=== PATIENT | female | born 1945 | race Caucasian/White ===

== ENCOUNTER 2020-02-05 01:25 | Inpatient (IN) | payer MEDICARE ==
[~2020-02-05] VITALS: Ht 149.9 cm; Wt 76.0 kg
[2020-02-05] MEDS ORDERED: ATOR40TA PO (02:16)
[2020-02-05] MEDS ORDERED: DIGO125T PO (02:16)
[2020-02-05] MEDS ORDERED: METO25TA6 PO (02:16)
[2020-02-05] MEDS ORDERED: FURO-150 PO (02:17)
[2020-02-05] MEDS ORDERED: TRAZ150T78 PO (02:17)
[2020-02-05] MEDS ORDERED: BUSP15TA3 PO (02:17)
[2020-02-05] MEDS ORDERED: SERT25TA PO (02:17)
[2020-02-05] MEDS ORDERED: METF500T PO (02:17)
[2020-02-05] MEDS ORDERED: GABA300C PO (02:17)
[2020-02-05] MEDS ORDERED: NITR0.4T51 SL (02:17)
[2020-02-05] MEDS ORDERED: PRAS10TA10 PO (02:17)
[2020-02-05 02:25] LABS: ALBUMIN 2.8 G/DL (3.4-5.0); ANION GAP 9 (8-16); BLOOD UREA NITROGEN 55 MG/DL (7-18); BUN/CREATININE RATIO 9.9 (6.6-38.0); CALCIUM 8.7 MG/DL (8.5-10.1); CHLORIDE 101 MMOL/L (99-107); CREATININE 5.58 MG/DL (0.40-0.90); GLUCOSE 125 MG/DL (70-104); SODIUM 136 MMOL/L (135-145); TOTAL CARBON DIOXIDE 26.4 MMOL/L (24-32); TROPONIN I 0.16 NG/ML (0.0-0.05); eGFR 7 ML/MIN
[2020-02-05 02:26] LABS: POTASSIUM 6.1 MMOL/L (3.5-5.1)
[2020-02-05] MEDS ORDERED: furosemide 10 MG/1 ML 10ml inj IV ONE (02:30)
[2020-02-05] MEDS ORDERED: sodium bicarbonate (8.4%) inj. 1 MEQ/ML ML IV ONE (02:35)
[2020-02-05] MEDS: CALCIUM GLUC 1gm/50ml NACL,iso 50 ML IV SCH ×2 (02:42→03:56)
[2020-02-05] MEDS ORDERED: albuterol 2.5 MG/3 ML nebule CONTNEB STA (03:29)
[2020-02-05] MEDS ORDERED: insulin regular, human 10 units/0.1 ml syringe IV ONE (03:30)
[2020-02-05] MEDS ORDERED: dextrose 50%-water 50ml dispensing syringe IV ONE (03:30)
[2020-02-05] MEDS ORDERED: sodium polystyrene sulfonate 15gm/60ml oral suspension PO ONE (03:30)
[2020-02-05] MEDS ORDERED: ondansetron/PF 4mg/2ml inj IV PRN (04:15)
[2020-02-05] MEDS ORDERED: magnesium hydroxide 30ml (MOM) UD suspension PO PRN (04:15)
[2020-02-05] MEDS ORDERED: glucagon, human recombinant 1mg kit SUBCUT PRN (04:30)
[2020-02-05] MEDS ORDERED: dextrose 50%-water 50ml dispensing syringe IV PRN ×2 (04:30)
[2020-02-05] MEDS ORDERED: MESSAGE TO PHARMACY PO ONE (04:30)
[2020-02-05] MEDS ORDERED: nitroGLYCERIN 0.4mg SUBLingual tab SL PRN (04:30)
[2020-02-05] MEDS ORDERED: dextrose ORAL solution 15 GM/59 ML bottle PO PRN ×2 (04:30)
[2020-02-05 05:17] LABS: TOTAL PROTEIN,URINE RANDOM 49.5 MG/DL
[2020-02-05 05:19] LABS: CLARITY,URINE CLEAR (Clear); COLOR,URINE YELLOW (Yellow); GLUCOSE, URINE 100 mg/dl (Neg); KETONES,URINE NEGATIVE (Neg); LEUKOCYTE ESTERASE ,URINE TRACE (Neg); NITRITES, URINE NEGATIVE (Neg); OCCULT BLOOD,URINE TRACE-LYSED (Neg); PROTEIN,URINE TRACE mg/dl (Neg); UROBILINOGEN,URINE 0.2 E.U/dL (0.2-1.0)
--- NOTE | 2020-02-05 05:21 | NUR ---
Patient in room ED 5. I have received report from Phyllis MCKINNEY in the ER and had the opportunity to ask questions and assume patient care. Patient will be brought up to room 3024B
[2020-02-05 05:24] LABS: UA COLLECTION TYPE NON-SPECIFIED
[2020-02-05 05:49] VITALS: BP 113/47
--- NOTE | 2020-02-05 05:51 | NUR ---
Patient just got here from ER. She is A&O and in no apparent distress. Hooked patient up to tele and did her MRSA swab. Patient is lying in bed resting comfortably.
[2020-02-05 05:58] LABS: RBC,URINE 0-2 /HPF (0-2); WBC,URINE 0-4 /HPF (0-4)
[2020-02-05 05:59] LABS: AMORPHOUS URATES 1+; BACTERIA,URINE NONE SEEN /HPF (Neg); MUCUS STRANDS FEW /LPF (Neg); SQUAMOUS EPITHELIAL CELL,UR MANY /LPF (FEW)
[2020-02-05] MEDS: sodium bicarbonate (8.4%) inj. 100 MEQ in dextrose 5%-water 1,000 ML IV SCH ×2 (05:59→17:42)
--- NOTE | 2020-02-05 06:22 | NUR ---
Problems reprioritized. Patient report given, questions answered & plan of care reviewed with Toña MCKINNEY.
[2020-02-05 06:27] LABS: HEMOGLOBIN A1C 7.8 % (4.5-6.2)
--- NOTE | 2020-02-05 06:30 | NUR ---
Patient in room PCU 3024. I have received report from GERA MCKINNEY and had the opportunity to ask questions and assume patient care.
[2020-02-05 06:35] LABS: UA EOSINOPHILS NO EOS /HPF
[2020-02-05 06:56] LABS: ALBUMIN 2.8 G/DL (3.4-5.0); ANION GAP 13 (8-16); BLOOD UREA NITROGEN 52 MG/DL (7-18); BUN/CREATININE RATIO 8.8 (6.6-38.0); CALCIUM 8.8 MG/DL (8.5-10.1); CHLORIDE 102 MMOL/L (99-107); CREATININE 5.91 MG/DL (0.40-0.90); GLUCOSE 87 MG/DL (70-104); PHOSPHORUS 5.6 MG/DL (2.3-4.5); POTASSIUM 4.3 MMOL/L (3.5-5.1); SODIUM 138 MMOL/L (135-145); TOTAL CARBON DIOXIDE 23.4 MMOL/L (24-32); eGFR 7 ML/MIN
[2020-02-05] MEDS: busPIRone 15mg tablet PO SCH ×3 (07:47→21:03)
[2020-02-05] MEDS: atorvastatin 20mg tablet PO SCH (07:47)
[2020-02-05] MEDS ORDERED: sertraline 50mg tablet PO SCH (08:00)
[2020-02-05] MEDS ORDERED: metoprolol tartrate 25mg tablet PO SCH (08:00)
[2020-02-05] MEDS ORDERED: furosemide 20MG tablet PO SCH (08:00)
[2020-02-05] MEDS ORDERED: prasugrel 10mg tablet PO SCH (08:00)
--- NOTE | 2020-02-05 08:00 | NUR ---
HELD HEPARIN. PT HAS NO CBC. CALLED HOSPITALIST AND SHE TO ORDER ONE. WILL GIVE IF PLATELET COUNT IS APPROPRIATE....ALSO PT DOES NOT HAVE HER OWN ANTI PLATELET MED AVAILABLE. HOSPITLAIST WILL ADD A SUBSTITUTE.
--- NOTE | 2020-02-05 08:09 | NUR ---
PAGER ID: [phone] MESSAGE: [id number] Allie Vigil: Can we get CBC for today, pt is on blood thinners and no CBC orders. thanks John [phone]
--- NOTE | 2020-02-05 10:00 | NUR ---
Patient in room PCU 3024. I have received report from Toña MCKINNEY and had the opportunity to ask questions and assume patient care.
[2020-02-05 10:46] LABS: BASOPHILS % (AUTO) 0.4 % (0-1); EOSINOPHILS # (AUTO) 0.1 X10'3 (0-0.9); EOSINOPHILS % (AUTO) 0.9 % (0-6); HEMATOCRIT 30.8 % (35.0-45.0); HEMOGLOBIN 9.9 g/dl (12.0-16.0); LYMPHOCYTES # (AUTO) 0.9 X10'3 (1.1-4.8); LYMPHOCYTES % (AUTO) 9.8 % (21-51); MEAN CORPUSCULAR HEMOGLOBIN 30.2 PG (27.0-31.0); MEAN CORPUSCULAR HGB CONC 32.1 g/dL (33.0-36.5); MEAN CORPUSCULAR VOLUME 94.2 FL (78-98); MEAN PLATELET VOLUME 11.1 FL (7.4-10.4); MONOCYTES # (AUTO) 0.8 X10'3 (0-0.9); MONOCYTES % (AUTO) 8.4 % (2-12); NEUTROPHILS # (AUTO) 7.3 X10'3 (1.8-7.7); NEUTROPHILS % (AUTO) 80.5 % (42-75); PLATELET COUNT 146 X10'3 (140-440); RED BLOOD COUNT 3.27 X10'6 (4.20-5.60); RED CELL DISTRIBUTION WIDTH 17.1 % (11.5-14.5); WHITE BLOOD COUNT 9.1 X10'3 (4.5-11.0)
[2020-02-05] MEDS: clopidogrel 75mg tablet PO SCH (10:55)
[2020-02-05] MEDS: heparin, porcine 5000 units/ml vial SQ SCH ×2 (10:56→19:09)
[2020-02-05 11:00] VITALS: BP 166/57
[2020-02-05 11:06] LABS: LARGE PLATELETS FEW; PLATELET ESTIMATE NORMAL
--- NOTE | 2020-02-05 11:25 | NUR ---
GAVE REPORT TO CHAD MCKINNEY
--- NOTE | 2020-02-05 12:30 | NUR ---
Hu inserted into Pt. Pt tolerated well. 10ml of saline added to balloon. 200ml of urine with initial insertion.
--- NOTE | 2020-02-05 15:25 | NUR ---
DM consult, A1c 7.8, given patient's age and A1c less than 9% DM education is not indicated at this time. Accuchecks 87-125 mg/dl. Javi 11, per nursing documentation pt has pressure ulcer, no staging, to posterior buttock. No [facility] note available. Addendum: 02/05/20 at [address] Amended: Links added.
[2020-02-05 16:29] VITALS: BP 122/58
[2020-02-05] MEDS: acetaminophen 325mg tablet PO PRN (16:32)
[2020-02-05 18:00] VITALS: BP 139/53
--- NOTE | 2020-02-05 18:10 | NUR ---
Problems reprioritized. Patient report given, questions answered & plan of care reviewed with Dennys MCKINNEY.
--- NOTE | 2020-02-05 18:30 | NUR ---
Patient in room PCU 3024. I have received report from Jorge MCKINNEY and Jed and had the opportunity to ask questions and assume patient care.
[2020-02-05] MEDS: acetylcysteine 200 MG/ml 4ml vial PO SCH (19:10)
[2020-02-05] MEDS: insulin Lispro (HumaLOG) vial - multi-dose SQ SCH (19:14)
[2020-02-05] MEDS: metoprolol tartrate 12.5mg (1/2 tablet) PO SCH (19:16)
[2020-02-05 22:00] VITALS: BP 144/65
[2020-02-06] VITALS (7 sets, daily range): BP systolic 143–157; BP diastolic 55–70
[2020-02-06] MEDS: sodium bicarbonate (8.4%) inj. 100 MEQ in dextrose 5%-water 1,000 ML IV SCH (05:10)
[2020-02-06 05:26] LABS: BASOPHILS % (AUTO) 0.6 % (0-1); EOSINOPHILS # (AUTO) 0.2 X10'3 (0-0.9); EOSINOPHILS % (AUTO) 2.8 % (0-6); HEMATOCRIT 25.4 % (35.0-45.0); HEMOGLOBIN 8.3 g/dl (12.0-16.0); LYMPHOCYTES # (AUTO) 1.1 X10'3 (1.1-4.8); LYMPHOCYTES % (AUTO) 13.9 % (21-51); MEAN CORPUSCULAR HEMOGLOBIN 30.5 PG (27.0-31.0); MEAN CORPUSCULAR HGB CONC 32.9 g/dL (33.0-36.5); MEAN CORPUSCULAR VOLUME 92.8 FL (78-98); MONOCYTES # (AUTO) 0.6 X10'3 (0-0.9); MONOCYTES % (AUTO) 8.1 % (2-12); NEUTROPHILS % (AUTO) 74.6 % (42-75); PLATELET COUNT 138 X10'3 (140-440); RED BLOOD COUNT 2.74 X10'6 (4.20-5.60)
[2020-02-06 05:40] LABS: ALANINE AMINOTRANSFERASE 11 U/L (12-78); ALBUMIN 2.7 G/DL (3.4-5.0); ALBUMIN/GLOBULIN RATIO 0.8 (1.1-1.5); ALKALINE PHOSPHATASE 65 IU/L (46-116); ANION GAP 13 (8-16); ASPARTATE AMINO TRANSFERASE 14 U/L (10-37); BILIRUBIN,TOTAL 0.5 MG/DL (0.1-1.0); BLOOD UREA NITROGEN 53 MG/DL (7-18); BUN/CREATININE RATIO 8.6 (6.6-38.0); CALCIUM 8.1 MG/DL (8.5-10.1); CHLORIDE 95 MMOL/L (99-107); CREATININE 6.15 MG/DL (0.40-0.90); GLUCOSE 107 MG/DL (70-104); POTASSIUM 4.1 MMOL/L (3.5-5.1); SODIUM 135 MMOL/L (135-145); TOTAL CARBON DIOXIDE 27.1 MMOL/L (24-32); TOTAL PROTEIN 6.3 G/DL (6.4-8.2); eGFR 7 ML/MIN
[2020-02-06] MEDS: acetaminophen 325mg tablet PO PRN (06:02)
--- NOTE | 2020-02-06 07:14 | NUR ---
Problems reprioritized. Patient report given, questions answered & plan of care reviewed with CECILIA MCKINNEY.
[2020-02-06] MEDS: metoprolol tartrate 12.5mg (1/2 tablet) PO SCH (08:00)
[2020-02-06] MEDS: atorvastatin 20mg tablet PO SCH (08:36)
[2020-02-06] MEDS: acetylcysteine 200 MG/ml 4ml vial PO SCH ×2 (08:37→22:00)
[2020-02-06] MEDS: busPIRone 15mg tablet PO SCH ×3 (08:37→21:59)
[2020-02-06] MEDS: heparin, porcine 5000 units/ml vial SQ SCH ×2 (08:37→21:59)
[2020-02-06] MEDS: clopidogrel 75mg tablet PO SCH (08:37)
[2020-02-06] MEDS: sertraline 50mg tablet PO SCH (08:37)
[2020-02-06] MEDS: insulin Lispro (HumaLOG) vial - multi-dose SQ SCH ×2 (08:45→19:46)
[2020-02-06] MEDS: mag hydrox/Alum hydrox/simeth 30ml oral suspension PO PRN (09:53)
[2020-02-06] MEDS ORDERED: pneumococcal 23-VAL P-sac vacc 25 mcg/0.5ml vial IMVAC ONE (10:00)
[2020-02-06] MEDS ORDERED: FLU VACC QS2020-21(6MOS UP)/PF 60 MCG/0.5 ML SYRINGE IMVAC ONE (10:00)
[2020-02-06] MEDS ORDERED: sodium bicarbonate 650mg tablet PO ONE (11:45)
[2020-02-06] MEDS ORDERED: sodium bicarbonate 650mg tablet PO SCH (11:45)
[2020-02-06] MEDS ORDERED: mag hydrox/Alum hydrox/simeth 30ml oral suspension PO ONE (12:25)
[2020-02-06] MEDS ORDERED: furosemide 40mg/4ml inj IV ONE (13:05)
--- NOTE | 2020-02-06 18:36 | NUR ---
Patient in room MED 311. I have received report from HANK BROOKS and had the opportunity to ask questions and assume patient care. Addendum: 02/06/20 at 1836 by Maci Brambila RN Amended: Links added.
--- NOTE | 2020-02-06 18:37 | NUR ---
Problems reprioritized. Patient report given, questions answered & plan of care reviewed with HANK Jeter.
[2020-02-06] MEDS: insulin glargine (Lantus) pen - multi-dose SQ SCH (22:09)
[2020-02-07] MEDS: mag hydrox/Alum hydrox/simeth 30ml oral suspension PO PRN (00:33)
[2020-02-07 02:00] VITALS: BP 131/67
[2020-02-07 06:08] LABS: BASOPHILS % (AUTO) 0.3 % (0-1); EOSINOPHILS # (AUTO) 0.2 X10'3 (0-0.9); EOSINOPHILS % (AUTO) 2.9 % (0-6); HEMOGLOBIN 8.4 g/dl (12.0-16.0); LYMPHOCYTES % (AUTO) 13.3 % (21-51); MEAN CORPUSCULAR HEMOGLOBIN 31.1 PG (27.0-31.0); MEAN CORPUSCULAR HGB CONC 33.6 g/dL (33.0-36.5); MEAN CORPUSCULAR VOLUME 92.6 FL (78-98); MEAN PLATELET VOLUME 10.9 FL (7.4-10.4); MONOCYTES # (AUTO) 0.8 X10'3 (0-0.9); MONOCYTES % (AUTO) 10.4 % (2-12); NEUTROPHILS # (AUTO) 5.7 X10'3 (1.8-7.7); NEUTROPHILS % (AUTO) 73.1 % (42-75); PLATELET COUNT 146 X10'3 (140-440); RED CELL DISTRIBUTION WIDTH 17.1 % (11.5-14.5); WHITE BLOOD COUNT 7.7 X10'3 (4.5-11.0)
[2020-02-07 06:24] LABS: ALANINE AMINOTRANSFERASE 12 U/L (12-78); ALBUMIN 2.8 G/DL (3.4-5.0); ALBUMIN/GLOBULIN RATIO 0.7 (1.1-1.5); ALKALINE PHOSPHATASE 69 IU/L (46-116); ANION GAP 11 (8-16); ASPARTATE AMINO TRANSFERASE 14 U/L (10-37); BILIRUBIN,TOTAL 0.6 MG/DL (0.1-1.0); BLOOD UREA NITROGEN 54 MG/DL (7-18); BUN/CREATININE RATIO 7.8 (6.6-38.0); CALCIUM 8.3 MG/DL (8.5-10.1); CHLORIDE 94 MMOL/L (99-107); CREATININE 6.89 MG/DL (0.40-0.90); GLUCOSE 83 MG/DL (70-104); POTASSIUM 3.9 MMOL/L (3.5-5.1); SODIUM 133 MMOL/L (135-145); TOTAL CARBON DIOXIDE 27.8 MMOL/L (24-32); TOTAL PROTEIN 6.6 G/DL (6.4-8.2); eGFR 6 ML/MIN
--- NOTE | 2020-02-07 06:30 | NUR ---
Problems reprioritized. Patient report given, questions answered & plan of care reviewed with HANK Smiley.
[2020-02-07] MEDS ORDERED: heparin 1,000 units/ml 10ml inj HE ONE ×2 (06:40)
[2020-02-07] MEDS ORDERED: epoetin 20,000 units/ml inj IV ONE (06:40)
[2020-02-07] MEDS ORDERED: albumin (human) 25% 100ml IV 100 ML IV PRN (06:40)
[2020-02-07] MEDS ORDERED: heparin 1,000unit/ml 10ml vial 10 ML IV ONE (06:40)
[2020-02-07] MEDS ORDERED: heparin 1,000 units/ml 10ml inj IV ONE (06:40)
[2020-02-07 07:27] VITALS: BP 143/60
[2020-02-07] MEDS: heparin, porcine 5000 units/ml vial SQ SCH ×2 (08:00→21:20)
[2020-02-07] MEDS ORDERED: fentaNYL/PF 50MCG/1 ML 2ML syringe ONE (08:52)
[2020-02-07] MEDS ORDERED: heparin 1,000unit/ml 10ml vial 10 ML ONE (08:52)
[2020-02-07] MEDS ORDERED: midazolam 2 mg/2 ml injection ONE (08:52)
[2020-02-07] MEDS ORDERED: LIDOcaine 1%/PF 5ML 10 MG/ML VIAL ONE (08:53)
[2020-02-07] MEDS: busPIRone 15mg tablet PO SCH ×3 (10:53→21:21)
[2020-02-07] MEDS: sertraline 50mg tablet PO SCH (10:53)
[2020-02-07] MEDS: clopidogrel 75mg tablet PO SCH (10:53)
[2020-02-07] MEDS: atorvastatin 20mg tablet PO SCH (10:54)
[2020-02-07] MEDS: acetylcysteine 200 MG/ml 4ml vial PO SCH ×2 (10:56→21:21)
[2020-02-07 11:30] VITALS: BP 158/56
[2020-02-07] MEDS: insulin Lispro (HumaLOG) vial - multi-dose SQ SCH ×2 (13:34→18:58)
[2020-02-07 14:00] VITALS: BP 136/50
--- NOTE | 2020-02-07 16:08 | NUR ---
PAGER ID: [phone] MESSAGE: Baljit Surg [id number] Re: Allie Vigil 311 patient C/O neck pain near dialysis cath placement site we don't have any pain management available. thanks Baljit
[2020-02-07] MEDS: HYDROcodone/acetaminophen 10/325mg tab PO PRN ×2 (16:29→21:21)
--- NOTE | 2020-02-07 18:30 | NUR ---
Patient in room MED 311. I have received report from NICHOLE and had the opportunity to ask questions and assume patient care. PT RECEIVING HEMODIALYSIS CURRENTLY.
--- NOTE | 2020-02-07 18:30 | NUR ---
Problems reprioritized. Patient report given, questions answered & plan of care reviewed with Rhonda MCKINNEY.
[2020-02-07 19:15] VITALS: BP 150/60
[2020-02-07] MEDS: insulin glargine (Lantus) pen - multi-dose SQ SCH (21:20)
[2020-02-07 22:15] VITALS: BP 128/59
[2020-02-08 02:00] VITALS: BP 177/61
[2020-02-08] MEDS: HYDROcodone/acetaminophen 5mg/325mg tablet PO PRN (03:37)
[2020-02-08 05:05] LABS: BASOPHILS % (AUTO) 0.6 % (0-1); EOSINOPHILS # (AUTO) 0.2 X10'3 (0-0.9); EOSINOPHILS % (AUTO) 2.7 % (0-6); HEMATOCRIT 25.3 % (35.0-45.0); HEMOGLOBIN 8.5 g/dl (12.0-16.0); LYMPHOCYTES % (AUTO) 13.7 % (21-51); MEAN CORPUSCULAR HEMOGLOBIN 30.9 PG (27.0-31.0); MEAN CORPUSCULAR HGB CONC 33.4 g/dL (33.0-36.5); MEAN CORPUSCULAR VOLUME 92.3 FL (78-98); MEAN PLATELET VOLUME 10.7 FL (7.4-10.4); MONOCYTES # (AUTO) 0.7 X10'3 (0-0.9); MONOCYTES % (AUTO) 9.8 % (2-12); NEUTROPHILS # (AUTO) 5.4 X10'3 (1.8-7.7); NEUTROPHILS % (AUTO) 73.2 % (42-75); PLATELET COUNT 153 X10'3 (140-440); RED BLOOD COUNT 2.74 X10'6 (4.20-5.60); RED CELL DISTRIBUTION WIDTH 17.1 % (11.5-14.5); WHITE BLOOD COUNT 7.4 X10'3 (4.5-11.0)
[2020-02-08 05:13] LABS: ALANINE AMINOTRANSFERASE 12 U/L (12-78); ALBUMIN 2.8 G/DL (3.4-5.0); ALBUMIN/GLOBULIN RATIO 0.7 (1.1-1.5); ALKALINE PHOSPHATASE 79 IU/L (46-116); ANION GAP 8 (8-16); ASPARTATE AMINO TRANSFERASE 16 U/L (10-37); BILIRUBIN,TOTAL 0.7 MG/DL (0.1-1.0); BLOOD UREA NITROGEN 29 MG/DL (7-18); BUN/CREATININE RATIO 6.3 (6.6-38.0); CALCIUM 8.1 MG/DL (8.5-10.1); CHLORIDE 96 MMOL/L (99-107); CREATININE 4.58 MG/DL (0.40-0.90); GLUCOSE 135 MG/DL (70-104); MAGNESIUM 1.7 MG/DL (1.5-2.4); PHOSPHORUS 3.7 MG/DL (2.3-4.5); POTASSIUM 4.1 MMOL/L (3.5-5.1); SODIUM 133 MMOL/L (135-145); TOTAL CARBON DIOXIDE 28.8 MMOL/L (24-32); TOTAL PROTEIN 6.8 G/DL (6.4-8.2); eGFR 9 ML/MIN
--- NOTE | 2020-02-08 06:29 | NUR ---
Problems reprioritized. Patient report given, questions answered & plan of care reviewed with ANAMARIA.
[2020-02-08 07:20] VITALS: BP 177/61
[2020-02-08] MEDS: acetylcysteine 200 MG/ml 4ml vial PO SCH (07:28)
[2020-02-08] MEDS: heparin, porcine 5000 units/ml vial SQ SCH ×2 (07:28→20:00)
[2020-02-08] MEDS: busPIRone 15mg tablet PO SCH ×4 (07:28→19:59)
[2020-02-08] MEDS: clopidogrel 75mg tablet PO SCH (07:28)
[2020-02-08] MEDS: atorvastatin 20mg tablet PO SCH (07:28)
[2020-02-08] MEDS: sertraline 50mg tablet PO SCH (07:28)
[2020-02-08] MEDS ORDERED: heparin 1,000unit/ml 10ml vial 10 ML IV ONE (07:55)
[2020-02-08] MEDS ORDERED: normal saline 1000ml 250 ML IV PRN (07:55)
[2020-02-08] MEDS ORDERED: heparin 1,000 units/ml 10ml inj IV ONE (07:55)
[2020-02-08] MEDS ORDERED: epoetin 20,000 units/ml inj IV ONE (07:55)
[2020-02-08] MEDS ORDERED: heparin 1,000 units/ml 10ml inj HE ONE (08:00)
[2020-02-08 08:41] LABS: ANISOCYTOSIS 1+; LARGE PLATELETS FEW; PLATELET ESTIMATE NORMAL
[2020-02-08 08:42] LABS: SCHISTOCYTES FEW
[2020-02-08 08:43] LABS: ELLIPTOCYTES 1+
[2020-02-08] MEDS: insulin Lispro (HumaLOG) vial - multi-dose SQ SCH (09:03)
--- NOTE | 2020-02-08 09:44 | NUR ---
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
[2020-02-08] MEDS ORDERED: FLU VACC QS2020-21(6MOS UP)/PF 60 MCG/0.5 ML SYRINGE IMVAC ONE (10:00)
[2020-02-08] MEDS ORDERED: pneumococcal 23-VAL P-sac vacc 25 mcg/0.5ml vial IMVAC ONE (10:00)
[2020-02-08 10:19] VITALS: BP 146/82
[2020-02-08] MEDS ORDERED: temazepam 15mg capsule PO PRN (12:30)
[2020-02-08 14:41] VITALS: BP 163/72
--- NOTE | 2020-02-08 15:40 | NUR ---
Patient in room MED 311. I have received report from HANK PANTOJA and had the opportunity to ask questions and assume patient care.
--- NOTE | 2020-02-08 15:51 | NUR ---
Problems reprioritized. Patient report given, questions answered & plan of care reviewed with HANK Espinal.
--- NOTE | 2020-02-08 17:57 | NUR ---
Student documentation: I have reviewed and agree with interventions, assessments performed and documented by SN ROB. Student Medication Administration: For this medication-pass time frame, medication were reviewed, dispensed, administered and documented per hospital policy by SN ROB.
[2020-02-08 18:00] VITALS: BP 157/63
--- NOTE | 2020-02-08 18:23 | NUR ---
Problems reprioritized. Patient report given, questions answered & plan of care reviewed with HANK Fish .
--- NOTE | 2020-02-08 18:25 | NUR ---
Patient in room MED 311. I have received report from Kylie MCKINNEY and had the opportunity to ask questions and assume patient care.
[2020-02-08] MEDS: HYDROcodone/acetaminophen 10/325mg tab PO PRN (18:53)
[2020-02-08] MEDS: insulin glargine (Lantus) pen - multi-dose SQ SCH (21:16)
[2020-02-08 22:00] VITALS: BP 156/62
[2020-02-09 02:00] VITALS: BP 171/73
[2020-02-09 06:00] VITALS: BP 175/61
[2020-02-09 06:07] LABS: BASOPHILS % (AUTO) 0.4 % (0-1); EOSINOPHILS # (AUTO) 0.3 X10'3 (0-0.9); EOSINOPHILS % (AUTO) 3.9 % (0-6); HEMATOCRIT 25.8 % (35.0-45.0); HEMOGLOBIN 8.6 g/dl (12.0-16.0); LYMPHOCYTES # (AUTO) 1.2 X10'3 (1.1-4.8); LYMPHOCYTES % (AUTO) 18.3 % (21-51); MEAN CORPUSCULAR HEMOGLOBIN 31.2 PG (27.0-31.0); MEAN CORPUSCULAR HGB CONC 33.3 g/dL (33.0-36.5); MEAN CORPUSCULAR VOLUME 93.8 FL (78-98); MEAN PLATELET VOLUME 10.7 FL (7.4-10.4); MONOCYTES # (AUTO) 0.7 X10'3 (0-0.9); MONOCYTES % (AUTO) 11.2 % (2-12); NEUTROPHILS # (AUTO) 4.3 X10'3 (1.8-7.7); NEUTROPHILS % (AUTO) 66.2 % (42-75); PLATELET COUNT 144 X10'3 (140-440); RED BLOOD COUNT 2.75 X10'6 (4.20-5.60); RED CELL DISTRIBUTION WIDTH 16.7 % (11.5-14.5); WHITE BLOOD COUNT 6.4 X10'3 (4.5-11.0)
--- NOTE | 2020-02-09 06:10 | NUR ---
Patient in room MED 311. I have received report from HANK Fish and had the opportunity to ask questions and assume patient care.
--- NOTE | 2020-02-09 06:21 | NUR ---
Problems reprioritized. Patient report given, questions answered & plan of care reviewed with Dana MCKINNEY.
[2020-02-09 06:37] LABS: ALANINE AMINOTRANSFERASE 9 U/L (12-78); ALBUMIN 2.7 G/DL (3.4-5.0); ALBUMIN/GLOBULIN RATIO 0.7 (1.1-1.5); ALKALINE PHOSPHATASE 73 IU/L (46-116); ANION GAP 4 (8-16); ASPARTATE AMINO TRANSFERASE 12 U/L (10-37); BILIRUBIN,TOTAL 0.6 MG/DL (0.1-1.0); BLOOD UREA NITROGEN 13 MG/DL (7-18); BUN/CREATININE RATIO 4.2 (6.6-38.0); CALCIUM 8.8 MG/DL (8.5-10.1); CHLORIDE 101 MMOL/L (99-107); CREATININE 3.12 MG/DL (0.40-0.90); GLUCOSE 92 MG/DL (70-104); MAGNESIUM 1.8 MG/DL (1.5-2.4); PHOSPHORUS 3.1 MG/DL (2.3-4.5); POTASSIUM 3.6 MMOL/L (3.5-5.1); SODIUM 136 MMOL/L (135-145); TOTAL CARBON DIOXIDE 31.1 MMOL/L (24-32); TOTAL PROTEIN 6.7 G/DL (6.4-8.2); eGFR 15 ML/MIN
[2020-02-09] MEDS: sertraline 50mg tablet PO SCH (08:21)
[2020-02-09] MEDS: busPIRone 15mg tablet PO SCH ×3 (08:21→20:13)
[2020-02-09] MEDS: heparin, porcine 5000 units/ml vial SQ SCH ×2 (08:21→20:13)
[2020-02-09] MEDS: clopidogrel 75mg tablet PO SCH (08:21)
[2020-02-09] MEDS: atorvastatin 20mg tablet PO SCH (08:21)
[2020-02-09 10:00] VITALS: BP 161/68
[2020-02-09] MEDS ORDERED: FLU VACC QS2020-21(6MOS UP)/PF 60 MCG/0.5 ML SYRINGE IMVAC ONE (10:00)
[2020-02-09] MEDS ORDERED: pneumococcal 23-VAL P-sac vacc 25 mcg/0.5ml vial IMVAC ONE (10:00)
[2020-02-09 10:02] LABS: PLATELET ESTIMATE NORMAL
[2020-02-09 10:03] LABS: ANISOCYTOSIS 1+; LARGE PLATELETS FEW
[2020-02-09 10:04] LABS: ELLIPTOCYTES FEW; TEAR DROP CELLS FEW
[2020-02-09 12:00] LABS: HBSAG SCREEN Negative (Negative)
--- NOTE | 2020-02-09 13:09 | NUR ---
paged Dr. Robledo: "RM 311 HR 47, BP 190/67, no BP meds ordered. Would you like anything given? Thanks, Dana ACCE [id number]"
[2020-02-09] MEDS ORDERED: hydrALAZINE 20mg/ml inj. IV PRN (13:25)
[2020-02-09] MEDS ORDERED: amLODIPine 5mg tablet PO ONE (13:30)
[2020-02-09 14:00] VITALS: BP 168/66
[2020-02-09] MEDS: HYDROcodone/acetaminophen 5mg/325mg tablet PO PRN (14:09)
[2020-02-09 18:00] VITALS: BP 173/89
--- NOTE | 2020-02-09 18:00 | NUR ---
Problems reprioritized. Patient report given, questions answered & plan of care reviewed with HANK Fish.
--- NOTE | 2020-02-09 18:00 | NUR ---
Student documentation: I have reviewed and agree with all interventions, medication passes, and assessments performed and documented by SN Belen.
--- NOTE | 2020-02-09 19:36 | NUR ---
PAGER ID: [phone] MESSAGE: Bethanie Ann room 311, can she get something for anxiety? Thank you Polina
[2020-02-09] MEDS ORDERED: LORazepam 0.5 MG tablet PO PRN (19:55)
[2020-02-09] MEDS: insulin glargine (Lantus) pen - multi-dose SQ SCH (21:10)
--- NOTE | 2020-02-09 21:15 | NUR ---
PAGER ID: [phone] MESSAGE: Esperanza Ann. Something for sleep aid besides Restoril, it didn't work for her. Thank you Polina
[2020-02-09] MEDS ORDERED: diphenhydrAMINE 50 mg/ml inj IV ONE (21:30)
[2020-02-09] MEDS ORDERED: Melatonin 3mg tablet PO SCH (21:30)
[2020-02-09 22:00] VITALS: BP 154/65
[2020-02-10 02:00] VITALS: BP 173/70
[2020-02-10 06:00] VITALS: BP 153/64
[2020-02-10 06:29] LABS: BASOPHILS # (AUTO) 0.1 X10'3 (0-0.2); BASOPHILS % (AUTO) 0.8 % (0-1); EOSINOPHILS # (AUTO) 0.2 X10'3 (0-0.9); EOSINOPHILS % (AUTO) 2.7 % (0-6); HEMATOCRIT 29.7 % (35.0-45.0); HEMOGLOBIN 9.7 g/dl (12.0-16.0); LYMPHOCYTES # (AUTO) 1.1 X10'3 (1.1-4.8); LYMPHOCYTES % (AUTO) 13.6 % (21-51); MEAN CORPUSCULAR HEMOGLOBIN 30.6 PG (27.0-31.0); MEAN CORPUSCULAR HGB CONC 32.7 g/dL (33.0-36.5); MEAN CORPUSCULAR VOLUME 93.6 FL (78-98); MEAN PLATELET VOLUME 10.9 FL (7.4-10.4); MONOCYTES # (AUTO) 0.8 X10'3 (0-0.9); NEUTROPHILS # (AUTO) 6.2 X10'3 (1.8-7.7); NEUTROPHILS % (AUTO) 73.9 % (42-75); PLATELET COUNT 180 X10'3 (140-440); RED BLOOD COUNT 3.17 X10'6 (4.20-5.60); RED CELL DISTRIBUTION WIDTH 16.7 % (11.5-14.5); WHITE BLOOD COUNT 8.4 X10'3 (4.5-11.0)
[2020-02-10 06:45] LABS: ALANINE AMINOTRANSFERASE 11 U/L (12-78); ALBUMIN 3.1 G/DL (3.4-5.0); ALBUMIN/GLOBULIN RATIO 0.7 (1.1-1.5); ALKALINE PHOSPHATASE 83 IU/L (46-116); ANION GAP 6 (8-16); ASPARTATE AMINO TRANSFERASE 15 U/L (10-37); BILIRUBIN,TOTAL 0.7 MG/DL (0.1-1.0); BLOOD UREA NITROGEN 17 MG/DL (7-18); BUN/CREATININE RATIO 4.9 (6.6-38.0); CALCIUM 9.4 MG/DL (8.5-10.1); CHLORIDE 101 MMOL/L (99-107); CREATININE 3.47 MG/DL (0.40-0.90); GLUCOSE 73 MG/DL (70-104); MAGNESIUM 1.8 MG/DL (1.5-2.4); PHOSPHORUS 3.1 MG/DL (2.3-4.5); POTASSIUM 3.5 MMOL/L (3.5-5.1); SODIUM 138 MMOL/L (135-145); TOTAL CARBON DIOXIDE 30.8 MMOL/L (24-32); TOTAL PROTEIN 7.6 G/DL (6.4-8.2); eGFR 13 ML/MIN
[2020-02-10] MEDS ORDERED: amLODIPine 5mg tablet PO SCH (08:00)
[2020-02-10] MEDS: clopidogrel 75mg tablet PO SCH (08:45)
[2020-02-10] MEDS: atorvastatin 20mg tablet PO SCH (08:45)
[2020-02-10] MEDS: busPIRone 15mg tablet PO SCH ×2 (08:46→12:17)
[2020-02-10] MEDS: sertraline 50mg tablet PO SCH (08:46)
[2020-02-10] MEDS: heparin, porcine 5000 units/ml vial SQ SCH (09:01)
[2020-02-10] MEDS: insulin Lispro (HumaLOG) vial - multi-dose SQ SCH (09:49)
[2020-02-10 10:00] VITALS: BP 144/69
[2020-02-10] MEDS ORDERED: AMLO5TAB16 PO (10:51)
[2020-02-10] MEDS ORDERED: SITA100T11 PO (10:55)
[2020-02-10] MEDS ORDERED: TRAZ150T78 PO (11:10)
--- NOTE | 2020-02-10 12:23 | NUR ---
DR Robledo 11 [address], S. Do you want the R neck temp dialysis access removed prior to d/c
--- NOTE | 2020-02-10 13:21 | NUR ---
Omega Port To R Neck discontinued using sterile technique. Catheter was intact. Pt tolerated well
--- NOTE | 2020-02-10 13:40 | NUR ---
Pt received d/c orders. Pt has remained stable. VSS. PIV on RFA d/robbie cath intact no s/s complications. Hu cath removed earlier and pt was able to urinate without difficulty after. She tolerated removal well. All discharge instructions given pt stated understanding. Medications brought from Pharmacy that had been stored and all accounted for. All belongings accounted for. Photos of wound on L buttocks and foam dressing placed. She was taken via wheelchair to private vehicle.
== END 2020-02-10 14:40 | disposition home or self-care (01) | DRG 683 ==
LOC: ER 01:27 → ED HOLD 04:13 → UNDOADMIN 04:13 → ED HOLD 05:34 → PCU 3S 05:34 → MED 3N 02-06 05:35
PROVIDERS: ADMIT Internal Medicine; ATTEND Internal Medicine
PROC: 5A1D70Z Performance of Urinary Filtration, Intermittent, Less than 6 Hours Per Day (ICD-10-PCS; principal; 2020-02-07)
PROC: 02HV33Z Insertion of Infusion Device into Superior Vena Cava, Percutaneous Approach (ICD-10-PCS; 2020-02-07)
PROC: 5A1D70Z Performance of Urinary Filtration, Intermittent, Less than 6 Hours Per Day (ICD-10-PCS; 2020-02-08)
PROC: 3E02340 Introduction of Influenza Vaccine into Muscle, Percutaneous Approach (ICD-10-PCS; 2020-02-09)
PROC: 3E0234Z Introduction of Serum, Toxoid and Vaccine into Muscle, Percutaneous Approach (ICD-10-PCS; 2020-02-09)
DX: N17.0 Acute kidney failure with tubular necrosis (principal); I12.0 Hypertensive chronic kidney disease with stage 5 chronic kidney disease or end stage renal disease; E87.5 Hyperkalemia; F17.200 Nicotine dependence, unspecified, uncomplicated; E86.1 Hypovolemia; D64.9 Anemia, unspecified; E11.22 Type 2 diabetes mellitus with diabetic chronic kidney disease; E78.00 Pure hypercholesterolemia, unspecified; E78.5 Hyperlipidemia, unspecified; I25.10 Atherosclerotic heart disease of native coronary artery without angina pectoris; T50.8X5A Adverse effect of diagnostic agents, initial encounter; N14.1 Nephropathy induced by other drugs, medicaments and biological substances; J44.9 Chronic obstructive pulmonary disease, unspecified; N18.5 Chronic kidney disease, stage 5; Z95.5 Presence of coronary angioplasty implant and graft; I25.2 Old myocardial infarction; Z79.899 Other long term (current) drug therapy; Z90.49 Acquired absence of other specified parts of digestive tract; Z23 Encounter for immunization; Y92.89 Other specified places as the place of occurrence of the external cause
CPT/HCPCS: 36415; 36556; 71045; 76775; 80048; 80053; 80069; 80162; 81001; 82570; 82948; 83036; 83735; 83935; 84100; 84133; 84156; 84300; 84484; 85008; 85025; 87081; 87207; 87340; 90732; 90935; 93005; 94667; 94760; 96365; 96375; 97161; 97530; 99285; A9270; C1751; C1769; C1894; G0378; J1200; J1644; J1815; J1940; J2150; J2250; J3010; Q2039; Q4081